=== PATIENT | male | born 1980 | race African-American/Black ===

== ENCOUNTER 2017-02-02 14:41 | Emergency (ER) | payer MEDICAID, OTHER ==
[~2017-02-02] VITALS: Ht 175.3 cm; Wt 63.5 kg
[~2017-02-02 14:41] MED LIST: KEFLEX250 MG ORAL
[2017-02-02] MEDS ORDERED: GENVOYA TABLET1 EACH PO (14:48)
--- NOTE | 2017-02-02 15:03 | Emergency Room Report ---
History of Present Illness General Chief Complaint: General Complaint Source: Patient Present Illness HPI 36-year-old male presents emergency department complaining of itching to the scalp x3 days. Patient states that he was treated with shampoo. Patient reports that is also been using the next home. Patient states that he scratched one open lesion on the posterior left side of his head. Patient reports significant itching denies fevers, chills. Denies lesions/rashes elsewhere on the body. Denies new medications or body washes or creams. Denies swelling of the lips, tongue , throat or airway. Denies wheezing, or shortness of breath. Denies recent travel, recent illness or ill contacts. denies blisters, oral lesions, or sloughing of the skin. Allergies: Coded Allergies: No Known Allergies (Unverified , 04/13/16) Patient History Past Medical History: see triage record, HIV Past Surgical History: none Pertinent Family History: none Immunizations: UTD Reviewed Nursing Documentation: PMH: Agreed, PSxH: Agreed Nursing Documentation-PMH Hx Hypertension: Yes Review of Systems All Other Systems: negative except mentioned in HPI Physical Exam Vital Signs Date Time Temp Pulse Resp B/P Pulse Ox O2 Delivery O2 Flow Rate FiO2 02/02/17 14:44 97.7 89 16 157/87 100 Room Air Sp02 EP Interpretation: reviewed, normal General Appearance: no apparent distress, alert, GCS 15, non-toxic Head: normocephalic, atraumatic Eyes: bilateral eye PERRL, bilateral eye normal inspection ENT: hearing grossly normal, normal pharynx, no angioedema, normal voice Neck: full range of motion, supple/symm/no masses Respiratory: lungs clear, normal breath sounds, speaking full sentences Cardiovascular #1: regular rate, rhythm Musculoskeletal: gait/station normal Neurologic: alert, oriented x3, responsive, motor strength/tone normal, sensory intact, speech normal Psychiatric: judgement/insight normal, memory normal, mood/affect normal Skin: normal color, warm/dry, well hydrated, rash - dermatitis of the scalp and posterior neck. suspicious for infestation. pt. also has lesions to bilateral shoulders, and ankles. Pt. has open lesion on the scalp 0.4cm in diameter, no surrounding erythema. Lymphatic: no adenopathy Medical Decision Making PA Attestation Dr. Fitzgerald is my supervising Physician whom patient management has been discussed with. Diagnostic Impression: Primary Impression: Rash and nonspecific skin eruption ER Course 36-year-old male presents emergency department complaining of itching to the scalp x3 days. Patient states that he was treated with shampoo. Patient reports that is also been using the next home. Patient states that he scratched one open lesion on the posterior left side of his head. Patient reports significant itching denies fevers, chills. Denies lesions/rashes elsewhere on the body. Denies new medications or body washes or creams. Denies swelling of the lips, tongue , throat or airway. Denies wheezing, or shortness of breath. Denies recent travel, recent illness or ill contacts. denies blisters, oral lesions, or sloughing of the skin. Ddx considered but are not limited to cellulitis, scabies, shingles, varicella, dermatitis, urticaria, eczema, tinea Vital signs: are WNL, pt. is afebrile H&PE are most consistent with dermatitis of the scalp and posterior neck. suspicious for infestation. pt. also has lesions to bilateral shoulders, and ankles. Pt. has open lesion on the scalp will treat prophylactically due to immune compromise/ HIV hx. ORDERS: none required at this time, the diagnosis is clinical ED INTERVENTIONS: -Benadryl IM DISCHARGE: At this time pt. is stable for d/c to home. Will provide printed patient care instructions, and any necessary prescriptions. Care plan and follow up instructions have been discussed with the patient prior to discharge. Last Vital Signs Date Time Temp Pulse Resp B/P Pulse Ox O2 Delivery O2 Flow Rate FiO2 02/02/17 14:44 97.7 89 16 157/87 100 Room Air Disposition: HOME, SELF-CARE Condition: Stable Scripts Diphenhydramine Hcl* (BENADRYL*) 25 Mg Capsule 25 MG ORAL Q6H Y for Itching, #20 CAP Prov: Cady Rahman 02/02/17 Permethrin* (ELIMITE*) 60 Gm Cream..g. 1 APPLIC TOPIC ONCE, #60 GM 0 Refills Apply cream from head to toe; leave on for 8-14 hours before washing off with water; may reapply in 1 week if live mites appear. Prov: Cady Rahman 02/02/17 Cephalexin* (KEFLEX*) 500 Mg Capsule 500 MG ORAL EVERY 12 HOURS for 7 Days, #14 CAP 0 Refills Prov: Cady Rahman 02/02/17 Patient Instructions: Rash, [id number] Additional Instructions: Take medications as directed. Follow up with a Primary Care Provider in 3-5 days, even if your symptoms have resolved. --Please review list of primary care clinics, if you do not already have a primary care provider TABLE HAND EVALUATION recommended with symptoms persist. Return sooner to ED if new symptoms occur, or current symptoms become worse. Do not drink alcohol, drive, or operate heavy machinery while taking Benadryl as this may cause drowsiness. - Please note that this Emergency Department Report was dictated using [employer] athletic equipment technology software, occasionally this can lead to erroneous entry secondary to interpretation by the dictation equipment. Cady Rahman Feb 02, 2017 15:03
[2017-02-02 15:05] VITALS: BP 154/82
[2017-02-02] MEDS ORDERED: PERMETHRIN60 GM TOPIC (15:08)
[2017-02-02] MEDS ORDERED: BENADRYL25 MG ORAL (15:08)
[2017-02-02] MEDS ORDERED: CEPHALEXIN500 MG ORAL (15:08)
[2017-02-02] MEDS ORDERED: DiphenhydrAMINE 50mg/ml Inj IM ONE (15:15)
[2017-02-02 15:22] VITALS: BP 154/82
== END 2017-02-02 15:23 | disposition home or self-care (01) ==
LOC: EMR 15:11
DX: R21 Rash and other nonspecific skin eruption (principal); I10 Essential (primary) hypertension
CPT/HCPCS: 99284; J1200

== ENCOUNTER 2017-04-11 15:53 | Emergency (ER) | payer OTHER ==
[~2017-04-11] VITALS: Ht 175.3 cm; Wt 63.5 kg
[~2017-04-11 15:53] MED LIST changes: +BENADRYL25 MG ORAL; +CEPHALEXIN500 MG ORAL; +GENVOYA TABLET1 EACH PO; +PERMETHRIN60 GM TOPIC
[2017-04-11 16:12] VITALS: BP 135/84
--- NOTE | 2017-04-11 17:17 | Emergency Room Report ---
History of Present Illness General Chief Complaint: General Complaint Source: Patient Present Illness HPI 36-year-old male presents to the emergency department complaining of sensation of takes in his ear in addition to throughout the skin on his body. Patient states he was recently prescribed ever met today in which did not help but he is requesting a refill. Patient denies fevers, chills, recent illness or recent travel. Patient reports weight loss of 20 pounds over the course of 2 months patient denies night sweats. She denies psychiatric past medical history , and denies drug use. Patient reports that he also thought he had worms coming from his anus 2 months ago. Patient denies trauma or fall. Denies abdominal pain, nausea, vomiting. He reports his pain as 10 out of 10 in severity, and reports crawling sensations on his skin. Allergies: Coded Allergies: No Known Allergies (Unverified , 04/13/16) Patient History Past Medical History: see triage record Past Surgical History: none Pertinent Family History: none Immunizations: UTD Nursing Documentation-[facility] Past Medical History: No Stated History Hx Hypertension: Yes Review of Systems All Other Systems: negative except mentioned in HPI Physical Exam Vital Signs Date Time Temp Pulse Resp B/P (MAP) Pulse Ox O2 Delivery O2 Flow Rate FiO2 04/11/17 15:56 97.9 85 18 161/99 100 Room Air Sp02 EP Interpretation: reviewed, normal General Appearance: no apparent distress, alert, GCS 15, non-toxic Head: normocephalic, atraumatic Eyes: bilateral eye normal inspection, bilateral eye PERRL ENT: hearing grossly normal, normal pharynx, no angioedema, normal voice, uvula midline, moist mucus membranes, other - opaque white d/c noted in the right canal, the TM is intact and WNL, mild macerated appearance to the right canal. the left TM and Canal are WNL Neck: full range of motion, supple/symm/no masses Respiratory: lungs clear, normal breath sounds, no wheezing, speaking full sentences Cardiovascular #1: regular rate, rhythm Gastrointestinal: normal bowel sounds, non tender, soft, no guarding, no rebound Rectal: deferred Musculoskeletal: back normal, gait/station normal, normal range of motion, non- tender Neurologic: alert, oriented x3, responsive, motor strength/tone normal, sensory intact, normal gait, speech normal Psychiatric: mood/affect normal, anxious - Pt is anxious and exhibits strong worries about possible parasitic infection. and describes collecting samples of his hair and stool. Skin: normal color, no rash, warm/dry, well hydrated, other - excoriations generalized on UE and LE's bilaterally, no evidence of secondary bacterial infeciton at this time, wounds are healed/scared, no open lesions Lymphatic: no adenopathy Medical Decision Making PA Attestation Dr. oakes is my supervising Physician whom patient management has been discussed with. Diagnostic Impression: Primary Impression: Otitis externa of right ear Qualified Codes: H60.501 - Unspecified acute noninfective otitis externa, right ear Additional Impressions: Rash and other nonspecific skin eruption Parasitosis ER Course 36-year-old male presents to the emergency department complaining of sensation of takes in his ear in addition to throughout the skin on his body. Patient states he was recently prescribed ever met today in which did not help but he is requesting a refill. Patient denies fevers, chills, recent illness or recent travel. Patient reports weight loss of 20 pounds over the course of 2 months patient denies night sweats. She denies psychiatric past medical history , and denies drug use. Patient reports that he also thought he had worms coming from his anus 2 months ago. Patient denies trauma or fall. Denies abdominal pain, nausea, vomiting. He reports his pain as 10 out of 10 in severity, and reports crawling sensations on his skin. Ddx considered but are not limited to OM, OE, mastoiditis, TM perforation, FB, scabies, psychosis, parasitosis Vital signs: are WNL, pt. is afebrile H&PE are most consistent with otitis media- non bacterial. ORDERS: none required at this time, the diagnosis is clinical ED INTERVENTIONS: None required at this time. - D/W pt. that appropriate treatment of is perceived parasitic infection needs to be managed by an infectious disease specialist. recommended follow up for further evaluation. also d/w pt. that his symptoms can also be manifested by psychiatric conditions or drug use. DISCHARGE: At this time pt. is stable for d/c to home. With otitic medications. Will provide printed patient care instructions, and any necessary prescriptions. Care plan and follow up instructions have been discussed with the patient prior to discharge. Last Vital Signs Date Time Temp Pulse Resp B/P (MAP) Pulse Ox O2 Delivery O2 Flow Rate FiO2 04/11/17 15:56 97.9 85 18 161/99 100 Room Air Disposition: HOME, SELF-CARE Condition: Stable Scripts Acetic Acid (ACETIC ACID) 15 Ml Solution 3 DROP RIGHT EAR FOUR TIMES A DAY, #5 ML Prov: Cady Rahman 04/11/17 Hydrocortisone 2% Cream (ANTI-ITCH 2% CREAM) Y Cr 1 APPLIC TP BID, #28.3 GM Prov: Cady Rahman 04/11/17 Patient Instructions: Otitis Externa, [id number] Additional Instructions: Take medications as directed. Follow up with an INFECTIOUS DISEASE SPECIALIST in 3-5 days, For further evaluation of your symptoms --Please review list of primary care clinics, if you do not already have a primary care provider Return sooner to ED if new symptoms occur, or current symptoms become worse. - Please note that this Emergency Department Report was dictated using [employer] sizer technology software, occasionally this can lead to erroneous entry secondary to interpretation by the dictation equipment. Cady Rahman Apr 11, 2017 17:16
[2017-04-11] MEDS ORDERED: ANTI-ITCH28 G1 TP (17:20)
[2017-04-11] MEDS ORDERED: ACETIC ACID15 ML RIGHT EAR (17:20)
[2017-04-11 17:59] VITALS: BP 134/79
== END 2017-04-11 18:15 | disposition home or self-care (01) ==
LOC: EMR 17:40
DX: H60.91 Unspecified otitis externa, right ear (principal); R21 Rash and other nonspecific skin eruption; B88.9 Infestation, unspecified; I10 Essential (primary) hypertension
CPT/HCPCS: 99282

== ENCOUNTER 2018-01-31 22:52 | Emergency (ER) | payer OTHER ==
[~2018-01-31] VITALS: Ht 175.3 cm; Wt 63.5 kg
[~2018-01-31 22:52] MED LIST changes: +ACETIC ACID15 ML RIGHT EAR; +ANTI-ITCH28 G1 TP
[2018-01-31 23:00] VITALS: BP 138/90
[2018-01-31] MEDS ORDERED: MUPIROCIN22 GM TOPIC (23:30)
[2018-01-31] MEDS ORDERED: DOXYCYCLINE MO100 MG ORAL (23:30)
--- NOTE | 2018-01-31 23:30 | Emergency Room Report ---
History of Present Illness General Chief Complaint: Skin Rash/Abscess Source: Patient Present Illness HPI Is a 37-year-old male with no significant past medical history. He presents with a possible insect bite to his right elbow. Notice it some redness today and very itching. Denies any fever chills but denies any drainage. He also complained of right ear pain and drainage. No fever chills but no cough or congestion. Onset for the last 2 days also. Allergies: Coded Allergies: No Known Allergies (Unverified , 04/13/16) Patient History Past Medical History: see triage record, old chart reviewed Past Surgical History: none Pertinent Family History: none Social History: Denies: smoking Immunizations: other Reviewed Nursing Documentation: PMH: Agreed; PSxH: Agreed Nursing Documentation-PMH Hx Hypertension: Yes Review of Systems Eye: Denies: eye pain, blurred vision ENT: Reports: ear pain, ear discharge; Denies: nose congestion, throat swelling Respiratory: Denies: cough, shortness of breath Cardiovascular: Denies: chest pain, palpitations Gastrointestinal: Denies: abdominal pain, diarrhea, nausea, vomiting Musculoskeletal: Denies: back pain, joint pain Skin: Reports: rash Neurological: Denies: headache, numbness Endocrine: Denies: increased thirst, increased urine Hematologic/Lymphatic: Denies: easy bruising All Other Systems: negative except mentioned in HPI Physical Exam Vital Signs Date Time Temp Pulse Resp B/P (MAP) Pulse Ox O2 Delivery O2 Flow Rate FiO2 01/31/18 22:56 98.7 125 20 145/90 96 Room Air 98.8 vitals unremarkable except for tachycardia Sp02 EP Interpretation: reviewed, normal General Appearance: well appearing, no apparent distress, alert Head: normocephalic, atraumatic Eyes: bilateral eye PERRL, bilateral eye EOMI ENT: hearing grossly normal, normal pharynx, other - Right TM is erythematous. Neck: full range of motion, supple, no meningismus Respiratory: chest non-tender, lungs clear, normal breath sounds Cardiovascular #1: regular rate, rhythm, no murmur Gastrointestinal: normal bowel sounds, non tender, no mass, no organomegaly, no bruit, non-distended Musculoskeletal: back normal, gait/station normal, normal range of motion, other - Right elbow: There is an area of about 4 cm of erythema. No abscess. No crepitance. This localized to the inner aspect of the distal humerus. Full range of motion of the elbow and shoulder. Psychiatric: mood/affect normal Skin: warm/dry Procedures Additional Procedure Procedure Narrative Procedure: Cerumen disimpaction Indication: Cerumen impaction Description: I irrigated the left ear with normal saline. Wax was removed. There was also a kernel corn removed. On recheck is some erythema to the canal but no evidence of perforation to the TM. Patient tolerated procedure without a problem. Medical Decision Making Diagnostic Impression: Primary Impression: Cellulitis of arm, right Additional Impressions: Otitis media Qualified Codes: H66.90 - Otitis media, unspecified, unspecified ear Foreign body of ear, right Qualified Codes: T16.1XXA - Foreign body in right ear, initial encounter ER Course Patient with cellulitis of his right upper arm. Most likely MRSA. No evidence of abscess or necrotizing fasciitis. We'll discharge home. Last Vital Signs Date Time Temp Pulse Resp B/P (MAP) Pulse Ox O2 Delivery O2 Flow Rate FiO2 01/31/18 22:56 98.7 125 20 145/90 96 Room Air 98.8 Status: improved Disposition: HOME, SELF-CARE Condition: Stable Scripts Mupirocin* (MUPIROCIN*) 22 Gm Oint...g. 1 APPLIC TOPIC THREE TIMES A DAY, #22 GM Prov: STEPHANIE ADAN M.D. 01/31/18 Doxycycline Monohydrate* (DOXYCYCLINE MONOHYDRATE*) 100 Mg Capsule 100 MG ORAL Q12H, #14 CAP 0 Refills Prov: STEPHANIE ADAN M.D. 01/31/18 Additional Instructions: Follow-up with your doctor in 7 days. Return if symptom worsen. STEPHANIE ADAN M.D. Jan 31, 2018 23:30
[2018-01-31 23:37] VITALS: BP 138/90
== END 2018-01-31 23:45 | disposition home or self-care (01) ==
LOC: EMR 23:35
DX: H61.22 Impacted cerumen, left ear (principal); T16.1XXA Foreign body in right ear, initial encounter; X58.XXXA Exposure to other specified factors, initial encounter; Y93.9 Activity, unspecified; Y92.9 Unspecified place or not applicable; L03.113 Cellulitis of right upper limb; H66.90 Otitis media, unspecified, unspecified ear; I10 Essential (primary) hypertension
CPT/HCPCS: 69210; 99282

== ENCOUNTER 2018-04-14 14:26 | Emergency (ER) | payer OTHER ==
[~2018-04-14] VITALS: Ht 175.3 cm; Wt 63.5 kg
[~2018-04-14 14:26] MED LIST changes: +DOXYCYCLINE MO100 MG ORAL; +MUPIROCIN22 GM TOPIC
[2018-04-14 14:40] VITALS: BP 131/88
[2018-04-14] MEDS ORDERED: NEOMYCIN-POLYMY10 ML OT (14:54)
[2018-04-14] MEDS ORDERED: AMOXICILLIN500 MG ORAL (14:54)
--- NOTE | 2018-04-14 14:55 | Emergency Room Report ---
History of Present Illness General Chief Complaint: Earache Source: Patient (Broderick Griffin) Present Illness HPI 37-year-old male patient presents ER complaining of ear pain for the past 3 days. Reports bleeding and serosanguineous drainage from the right ear during this time. Also complaining of left ear pain. Denies recent injury or trauma. Denies fever, chest pain, shortness of breath. denies Q-tip use. Denies recent swimming. reports has been using tissue paper to stop drainage from ear. Contrary to triage report denies eye pain. Denies photophobia, phonophobia, vision changes. Denies eye drainage or crusting. (Broderick Griffin) Allergies: Coded Allergies: No Known Allergies (Unverified , 04/13/16) Patient History Past Medical History: see triage record Reviewed Nursing Documentation: PMH: Agreed; PSxH: Agreed (Broderick Griffin) Nursing Documentation-PMH Past Medical History: No History, Except For Hx Cardiac Problems: No - HIV+ Hx Hypertension: No Hx Pacemaker: No Hx Asthma: No Hx COPD: No Hx Diabetes: No Hx Cancer: No Hx Gastrointestinal Problems: No Hx Dialysis: No History Of Psychiatric Problem: No Hx Neurological Problems: Yes - Pituitary adenoma Hx Cerebrovascular Accident: No Hx Seizures: No (Broderick Griffin) Review of Systems All Other Systems: negative except mentioned in HPI (Broderick Griffin) Physical Exam Vital Signs Date Time Temp Pulse Resp B/P (MAP) Pulse Ox O2 Delivery O2 Flow Rate FiO2 04/14/18 14:31 99.0 100 18 131/88 95 Room Air 99.0 Sp02 EP Interpretation: reviewed, normal General Appearance: well appearing, no apparent distress, alert, GCS 15, non- toxic Head: normocephalic, atraumatic Eyes: bilateral eye normal inspection, bilateral eye PERRL, bilateral eye EOMI ENT: hearing grossly normal, normal pharynx, no angioedema, normal voice, uvula midline, moist mucus membranes, other - right ear: Erythematous TM, no effusion, no rupture, dried purulent material noted at auricle and exit of ear canal; left ear: Serosanguineous fluid noted in ear canal, TM intact, nonerythematous Neck: full range of motion Respiratory: lungs clear, normal breath sounds, no rhonchi, no respiratory distress, no accessory muscle use, no wheezing, speaking full sentences Cardiovascular #1: regular rate, rhythm, no edema Musculoskeletal: back normal, digits/nails normal, gait/station normal, normal range of motion, non-tender Neurologic: alert, oriented x3, responsive, real estate services coordinator III-XII nml as tested, motor strength/tone normal, sensory intact Psychiatric: mood/affect normal Skin: no rash (Broderick Griffin) Medical Decision Making PA Attestation Dr. Roberto is my supervising Physician whom patient management has been discussed with. (Broderick Griffin) Diagnostic Impression: Primary Impression: Otitis media Additional Impression: Otitis externa ER Course Pt presents to ED c/o ear pain and drainage. DDX considered but are not limited to rhinitis, sinusitis, otitis media, otitis externa, cellulitis, mastoiditis, cerumen impaction. Low suspicion for mastoiditis, no swelling or erythema noted posterior to ear, no TTP. VITAL SIGNS are WNL, patient is afebrile. ER COURSE: PE shows erythematous right TM, likely otitis media. Possible otitis externa in right ear as well. No right side TM rupture or effusion. PE shows obvious otitis externa in left ear with purulent material. Nonerythematous TM, no TM rupture. Followup with ENT specialist. Take Tylenol and OTC medications for symptom relief; use as directed. ER precautions. DISCHARGE: -Rx provided for Amoxicillin. Use as directed for otitis media. -Rx provided for Neomycin/polymyxin/HC ear drops for otitis externa. Use bilaterally. At this time pt is stable for d/c to home. Patient is resting comfortably, in no acute distress nontoxic appearing, talking without difficulty. Patient to take medications as instructed Will provide with patient care instructions and any necessary prescriptions. Care plan and follow-up instructions provided. Patient instructed to follow-up with primary care provider in 3 - 5 days. Patient questions asked and answered. Reports understanding and agreement to treatment plan. ER precautions given. Patient instructed to return to ER immediately for any new or worsening of symptoms including but not limited to increasing SOB, persistent fever. - Please note that this Emergency Department Report was dictated using [employer] beam photo mask maker technology software, occasionally this can lead to erroneous entry secondary to interpretation by the dictation equipment. (Broderick Griffin) ER Course Patient examined by me. Agree with treatment plan. (Davidson Roberto MD) Last Vital Signs Date Time Temp Pulse Resp B/P (MAP) Pulse Ox O2 Delivery O2 Flow Rate FiO2 04/14/18 14:31 99.0 100 18 131/88 95 Room Air 99.0 Status: improved (Broderick Griffin) Disposition: HOME, SELF-CARE Condition: Stable Scripts Neomycin/Polymyxin B Sulf/Hc ([id number] EAR SOLN) 10 Ml Solution 3 DROP OT TID for 7 Days, #10 ML Prov: Broderick Griffin 04/14/18 Amoxicillin* (AMOXIL*) 500 Mg Capsule 500 MG ORAL EVERY 8 HOURS for 7 Days, #21 CAP Prov: Broderick Griffin 04/14/18 Patient Instructions: Otitis Media, Adult, Otitis Externa Additional Instructions: Followup with primary care provider in 3 -5 days. Discuss referral and followup with ENT specialist. Do not use Q-tips. Avoid swimming. Take medications as directed. Patient questions asked and answered. ER precautions given, patient instructed to return to ER immediately for any new or worsening of symptoms. Broderick Griffin Apr 14, 2018 14:55 Davidson Roberto MD Apr 16, 2018 07:02
[2018-04-14] MEDS ORDERED: Acetaminophen 500mg (ES) tab ORAL ONE ×2 (15:01→15:15)
[2018-04-14 15:11] VITALS: BP 131/88
== END 2018-04-14 15:11 | disposition home or self-care (01) ==
LOC: EMR 14:53
DX: H66.91 Otitis media, unspecified, right ear (principal); H60.91 Unspecified otitis externa, right ear
CPT/HCPCS: 99283

== ENCOUNTER 2018-05-18 21:20 | Emergency (ER) | payer OTHER ==
[~2018-05-18] VITALS: Ht 175.3 cm; Wt 63.5 kg
[~2018-05-18 21:20] MED LIST changes: +AMOXICILLIN500 MG ORAL; +NEOMYCIN-POLYMY10 ML OT
[2018-05-18 21:45] VITALS: BP 151/106
[2018-05-18] MEDS ORDERED: Metoclopramide 10mg/2ml Inj IVP ONE (22:00)
[2018-05-18] MEDS ORDERED: Ketorolac 30mg Inj IV ONE (22:00)
[2018-05-18] MEDS ORDERED: DiphenhydrAMINE 50mg/ml Inj IVP ONE (22:00)
[2018-05-18 22:21] LABS: EOSINOPHILS % (AUTO) 3.5 % (0.0-3.0); HEMATOCRIT 52.5 % (42.0-52.0); HEMOGLOBIN 17.3 G/DL (14.2-18.0); LYMPHOCYTES % (AUTO) 42.1 % (20.0-45.0); MEAN CORPUSCULAR VOLUME 83 FL (80-99); MONOCYTES % (AUTO) 7.7 % (1.0-10.0); NEUTROPHILS % (AUTO) 44.7 % (45.0-75.0); PLATELET COUNT 297 K/UL (150-450); RED BLOOD COUNT 6.37 M/UL (4.70-6.10); RED CELL DISTRIBUTION WIDTH 12.5 % (11.6-14.8); WHITE BLOOD COUNT 6.2 K/UL (4.8-10.8)
[2018-05-18 22:22] LABS: APPEARANCE,URINE SLIGHTLY CLOUDY; BILIRUBIN, URINE 1+ (NEGATIVE); COLOR,URINE BROWN; GLUCOSE, URINE (UA) NEGATIVE (NEGATIVE); KETONES,URINE 1+ (NEGATIVE); LEUKOCYTE ESTERASE ,URINE 1+ (NEGATIVE); NITRITE,URINE NEGATIVE (NEGATIVE); PH,URINE 5 (4.5-8.0); PROTEIN,URINE 2+ (NEGATIVE); UROBILINOGEN,URINE 4 MG/DL (0.0-1.0)
--- NOTE | 2018-05-18 22:30 | Emergency Room Report ---
History of Present Illness General Chief Complaint: Headache Source: Patient Present Illness HPI Is a 37-year-old male with a history HIV. Also has a history of hypertension but not taking his lisinopril for over a year now. He also has a history of pituitary adenoma. Last CT scan was 8 months ago. He presents with chief complaint of headache. He woke up with a headache. Onset was 2 hours ago. Throbbing in nature. No nausea no vomiting. Pain is 9 out of 10. Denies any fever chills. Denies any trauma. Denies any slurred speech. Nothing made it better. Nothing made it worse. Similar headache in the past. He felt like his adenoma may be growing. Allergies: Coded Allergies: No Known Allergies (Unverified , 04/13/16) Patient History Past Medical History: see triage record, old chart reviewed, HTN, HIV Past Surgical History: other Pertinent Family History: none Social History: Denies: smoking Immunizations: other Reviewed Nursing Documentation: PMH: Agreed; PSxH: Agreed Nursing Documentation-PMH Past Medical History: No History, Except For Hx Cardiac Problems: No - HIV+ Hx Hypertension: No Hx Pacemaker: No Hx Asthma: No Hx COPD: No Hx Diabetes: No Hx Cancer: No Hx Gastrointestinal Problems: No Hx Dialysis: No Hx Neurological Problems: Yes - Pituitary adenoma Hx Cerebrovascular Accident: No Hx Seizures: No Review of Systems Eye: Denies: eye pain, blurred vision ENT: Denies: ear pain, nose congestion, throat swelling Respiratory: Denies: cough, shortness of breath Cardiovascular: Denies: chest pain, palpitations Gastrointestinal: Denies: abdominal pain, diarrhea, nausea, vomiting Musculoskeletal: Denies: back pain, joint pain Skin: Denies: rash Neurological: Reports: headache; Denies: numbness Endocrine: Denies: increased thirst, increased urine Hematologic/Lymphatic: Denies: easy bruising All Other Systems: negative except mentioned in HPI Physical Exam Vital Signs Date Time Temp Pulse Resp B/P (MAP) Pulse Ox O2 Delivery O2 Flow Rate FiO2 05/18/18 21:26 97.3 96 16 151/107 98 Room Air vitals with high blood pressure Sp02 EP Interpretation: reviewed, normal General Appearance: well appearing, no apparent distress, alert Head: normocephalic, atraumatic Eyes: bilateral eye PERRL, bilateral eye EOMI ENT: hearing grossly normal, normal pharynx Neck: full range of motion, supple, no meningismus Respiratory: chest non-tender, lungs clear, normal breath sounds Cardiovascular #1: regular rate, rhythm, no murmur Gastrointestinal: normal bowel sounds, non tender, no mass, no organomegaly, no bruit, non-distended Musculoskeletal: back normal, gait/station normal, normal range of motion Psychiatric: mood/affect normal Skin: warm/dry Medical Decision Making Diagnostic Impression: Primary Impression: Headache Qualified Codes: R51 - Headache Additional Impressions: Sinusitis, acute Qualified Codes: J01.80 - Other acute sinusitis Amphetamine abuse ER Course Patient present with headache. This may be secondary to drug abuse or sinus headache. He said he has problem with the sinus on and off for a year now. Because of that, I will put him on antibiotics. Said he has a history of pituitary adenoma. Not obviously seen on CT scan of head. He has referral to see a specialist for follow-up again. No evidence of any meningitis or bleed. Headache resolved now. His blood pressures also much improved. Systolic 120 to 130s. Lab Results Impression unremarkable CT/MRI/US Diagnostic Results CT/MRI/US Diagnostic Results : Imaging Test Ordered: CT head Impression sinusitis per radiologist Last Vital Signs Date Time Temp Pulse Resp B/P (MAP) Pulse Ox O2 Delivery O2 Flow Rate FiO2 05/18/18 21:45 97.3 87 20 151/106 99 Room Air Status: improved Disposition: HOME, SELF-CARE Condition: Stable Scripts Ibuprofen* (MOTRIN*) 600 Mg Tablet 600 MG ORAL THREE TIMES A DAY, #30 TAB 0 Refills Prov: Angelo Araiza MD 05/18/18 Amoxicillin/Potassium Clav 875-125* (AUGMENTIN 875-125 TABLET*) 1 Each Tablet 1 TAB ORAL TWICE A DAY, #20 TAB Prov: Angelo Araiza MD 05/18/18 Patient Instructions: Sinus Headache Additional Instructions: Follow-up with your doctor in 7 days. Return if symptom worsen. Angelo Araiza MD May 18, 2018 22:30
[2018-05-18 22:35] LABS: ANION GAP 9 mmol/L (5-15); BLOOD UREA NITROGEN 13 mg/dL (7-18); CALCIUM 9.4 MG/DL (8.5-10.1); CARBON DIOXIDE 28 MMOL/L (21-32); CHLORIDE 103 MMOL/L (98-107); POTASSIUM 3.8 MMOL/L (3.5-5.1); SODIUM 140 MMOL/L (136-145)
[2018-05-18] MEDS ORDERED: IBUPROFEN600 MG ORAL (23:16)
[2018-05-18] MEDS ORDERED: AUGMENTIN 875-1 EAC1 ORAL (23:16)
[2018-05-18 23:19] VITALS: BP 121/92
[2018-05-18 23:23] VITALS: BP 121/92
--- NOTE | 2018-05-19 14:17 | Diagnostic Imaging Report ---
Indication: Headache, history of pituitary adenoma Technique: Continuous helical CT scanning of the head was performed without intravenous contrast material. Axial and coronal 5 mm sections were generated. Radiation dose was minimized using automated exposure control Dose: Total Dose Length Product - DLP [address] Dose Index - CTDIvol(s) 70 mGy. Comparison: Findings: The ventricular system is normal in size and configuration. There is no shift of midline structures. No abnormal extra-axial fluid collections are noted. There is no evidence of intracerebral bleeding. No other abnormal high or low density areas are noted within the brain. The calvarium is intact. There is bilateral mastoid opacification. The visualized orbits and sinuses are unremarkable. The vasquez-white differentiation is normal. Impression: Normal CT scan of the head without contrast material. Incidental finding of mastoid disease bilaterally This agrees with the preliminary interpretation provided overnight by [facility]. The CT scanner at [facility] is accredited by the [employer] and the scans are performed using protocols designed to limit radiation exposure to as low as reasonably achievable to attain images of sufficient resolution adequate for diagnostic evaluation.
== END 2018-05-18 23:23 | disposition home or self-care (01) ==
LOC: EMR 23:05
DX: J01.90 Acute sinusitis, unspecified (principal); R51 Headache; F15.10 Other stimulant abuse, uncomplicated; I10 Essential (primary) hypertension; Z21 Asymptomatic human immunodeficiency virus [HIV] infection status; Z86.018 Personal history of other benign neoplasm
CPT/HCPCS: 36415; 70450; 80048; 80307; 81001; 85025; 96374; 96375; 99284; J1200; J1885; J2765

== ENCOUNTER 2018-05-25 22:56 | Emergency (ER) | payer OTHER ==
[~2018-05-25] VITALS: Ht 175.3 cm; Wt 61.2 kg
[~2018-05-25 22:56] MED LIST changes: +AUGMENTIN 875-1 EAC1 ORAL; +IBUPROFEN600 MG ORAL
[2018-05-25 23:25] VITALS: BP 148/103
--- NOTE | 2018-05-25 23:31 | Emergency Room Report ---
History of Present Illness General Chief Complaint: Earache Source: Patient Present Illness HPI Is a 37-year-old male with a history of methamphetamine abuse. He presents with chief complaint of parasite coming from his ears. Onset for last few days. He said he felt something biting his ears and coming out of his ears. He been putting tape over it. Denies any fever chills but denies any nausea vomiting. No trauma. No other complaint. The demented better. Nothing made it worse. Allergies: Coded Allergies: No Known Allergies (Unverified , 04/13/16) Patient History Past Medical History: see triage record, old chart reviewed Past Surgical History: other Pertinent Family History: none Social History: Reports: drug use - Methamphetamine Immunizations: other Reviewed Nursing Documentation: PMH: Agreed; PSxH: Agreed Nursing Documentation-PMH Past Medical History: No Stated History Hx Cardiac Problems: No - HIV+ Hx Hypertension: No Hx Pacemaker: No Hx Asthma: No Hx COPD: No Hx Diabetes: No Hx Cancer: No Hx Gastrointestinal Problems: No Hx Dialysis: No Hx Neurological Problems: Yes - Pituitary adenoma Hx Cerebrovascular Accident: No Hx Seizures: No Review of Systems Eye: Denies: eye pain, blurred vision ENT: Reports: ear pain; Denies: nose congestion, throat swelling Respiratory: Denies: cough, shortness of breath Cardiovascular: Denies: chest pain, palpitations Gastrointestinal: Denies: abdominal pain, diarrhea, nausea, vomiting Musculoskeletal: Denies: back pain, joint pain Skin: Denies: rash Neurological: Denies: headache, numbness Endocrine: Denies: increased thirst, increased urine Hematologic/Lymphatic: Denies: easy bruising All Other Systems: negative except mentioned in HPI Physical Exam Vital Signs Date Time Temp Pulse Resp B/P (MAP) Pulse Ox O2 Delivery O2 Flow Rate FiO2 05/25/18 23:10 98.2 88 16 148/103 99 Room Air vitals with high blood pressure Sp02 EP Interpretation: reviewed, normal General Appearance: well appearing, no apparent distress, alert Head: normocephalic, atraumatic Eyes: bilateral eye PERRL, bilateral eye EOMI ENT: hearing grossly normal, normal pharynx, other - Left ear canal with cerumen Neck: full range of motion, supple, no meningismus Respiratory: chest non-tender, lungs clear, normal breath sounds Cardiovascular #1: regular rate, rhythm, no murmur Gastrointestinal: normal bowel sounds, non tender, no mass, no organomegaly, no bruit, non-distended Musculoskeletal: back normal, gait/station normal, normal range of motion Psychiatric: mood/affect normal Skin: warm/dry Procedures Additional Procedure Procedure Narrative Procedure: Ear irrigation Indication: Cerumen impaction Description: I irrigated the left ear with normal saline. There was a small piece of cotton and cerumen removed. I also irrigated the right ear. No foreign body. Medical Decision Making Diagnostic Impression: Primary Impression: Delusions of parasitosis Additional Impressions: Foreign body of ear, left Qualified Codes: T16.2XXA - Foreign body in left ear, initial encounter Methamphetamine abuse ER Course Patient presents with parasitosis. This most likely secondary to his methamphetamine abuse. No foreign body. No perforation. We'll discharge home. Last Vital Signs Date Time Temp Pulse Resp B/P (MAP) Pulse Ox O2 Delivery O2 Flow Rate FiO2 05/25/18 23:25 98.2 16 148/103 99 Room Air 05/25/18 23:10 88 Status: improved Disposition: HOME, SELF-CARE Condition: Stable Additional Instructions: Follow-up with your doctor in 7 days. Stop using drugs. Return if worse. Angelo Araiza MD May 25, 2018 23:31
[2018-05-25 23:34] VITALS: BP 148/103
== END 2018-05-25 23:35 | disposition home or self-care (01) ==
LOC: EMR 23:16
DX: F22 Delusional disorders (principal); F15.10 Other stimulant abuse, uncomplicated; T16.2XXA Foreign body in left ear, initial encounter; X58.XXXA Exposure to other specified factors, initial encounter; Y92.9 Unspecified place or not applicable; H61.22 Impacted cerumen, left ear
CPT/HCPCS: 69209; 99284; Z7502